=== PATIENT | female | born 1995 | race African-American/Black ===

== ENCOUNTER 2016-09-25 01:33 | Emergency (ER) | payer SELFPAY ==
[~2016-09-25] VITALS: Ht 167.6 cm; Wt 59.2 kg
[~2016-09-25 01:33] MED LIST: CLEOCIN300 MG PO; PERCOCET 5/31 TABLET PO; TRAMADOL HCL50 MG PO; ULTRAM50 MG PO
[2016-09-25] MEDS ORDERED: PERCOCET 5/31 TABLET PO (02:22)
[2016-09-25] MEDS ORDERED: CLEOCIN300 MG PO (02:25)
[2016-09-25] MEDS ORDERED: NO ROUTINE HOME MEDS (02:33)
[2016-09-25 02:43] VITALS: BP 131/88
== END 2016-09-25 02:43 | disposition home or self-care (01) ==
LOC: EME 01:33
PROC: 3E0T3BZ Introduction of Anesthetic Agent into Peripheral Nerves and Plexi, Percutaneous Approach (ICD-10-PCS; principal; 2016-09-25)
DX: K04.7 Periapical abscess without sinus (principal)
CPT/HCPCS: 99281; 99283

== ENCOUNTER 2017-10-04 00:24 | Emergency (ER) | payer OTHER ==
[~2017-10-04] VITALS: Ht 167.6 cm; Wt 62.3 kg
[~2017-10-04 00:24] MED LIST changes: +NO ROUTINE HOME MEDS
[2017-10-04 04:13] VITALS: BP 131/79
== END 2017-10-04 04:13 | disposition home or self-care (01) ==
LOC: EME 00:24
PROVIDERS: Nurse Practitioner Family
DX: B34.9 Viral infection, unspecified (principal); F17.200 Nicotine dependence, unspecified, uncomplicated; Z88.0 Allergy status to penicillin
CPT/HCPCS: 81025; 87502; 87651 90; 99281; 99284